=== PATIENT | female | born 1930 | race Caucasian/White ===

== ENCOUNTER 2017-07-17 19:36 | Emergency (ER) | payer MEDICARE ==
[2011-08-27 13:54] VITALS: BMI 20.5
[2017-07-17 20:37] LABS: BASOPHILS 0.3 % (0-2); EOSINOPHILS 0.1 % (0-7); HEMATOCRIT 38.6 % (36.0-48.0); IMMATURE GRANULOCYTES 0.3 % (0-5); LYMPHOCYTES 6.2 % (15-50); MCHC 33.7 g/dL (31.0-37.0); MCV 88.9 fL (80.0-100.0); MEAN PLATELET VOLUME 10.7 fL (7.4-10.4); MONOCYTES 6.6 % (2-11); NEUTROPHILS 86.5 % (40-80); PLATELET COUNT 130 10x3/uL (130-400); RBC 4.34 10x6/uL (4.00-5.40); RDW 12.8 % (11.5-14.5); WBC 7.4 10x3/uL (4.8-10.8)
[2017-07-17 20:49] LABS: INR 3.12 (0.85-1.17); PROTIME 31.3 SECONDS (11.6-15.0)
[2017-07-17 21:01] LABS: ALBUMIN 3.1 g/dL (3.4-5.0); ANION GAP 12.8 mmol/L (8-16); BILIRUBIN - TOTAL 0.82 mg/dL (0.2-1.3); CALCIUM 9.5 mg/dL (8.5-10.1); CARBON DIOXIDE 26.3 mmol/L (21.0-32.0); CREATININE - SERUM 1.2 mg/dL (0.6-1.3); POTASSIUM - SERUM 4.1 mmol/L (3.5-5.1); PROTEIN - SERUM 7.3 g/dL (6.4-8.2)
[2017-07-17 21:02] LABS: MAGNESIUM - SERUM 1.9 mg/dL (1.8-2.4); TROPONIN-I 0.043 ng/mL (0.000-0.060)
[2017-07-17 21:30] LABS: APPEARANCE CLEAR (CLEAR); BILIRUBIN NEGATIVE (NEGATIVE); COLOR YELLOW (YELLOW); GLUCOSE NEGATIVE (NEGATIVE); KETONE NEGATIVE (NEGATIVE); NITRITE NEGATIVE (NEGATIVE); PROTEIN 1+ mg/dL (NEGATIVE); UROBILINOGEN NORMAL (NORMAL); WHITE CELLS - URINE 25-50 /hpf (0-5)
[2017-07-17 21:31] LABS: BACTERIA MODERATE /hpf (NONE SEEN); EPITHELIAL CELLS 0-5 /hpf (0-5); RED CELLS - URINE 0-5 /hpf (0-5)
== END 2017-07-17 22:35 | disposition home or self-care (01) ==
LOC: D.ER 19:36
PROVIDERS: Nurse Practitioner Family
DX: R53.1 Weakness (principal); N39.0 Urinary tract infection, site not specified; R11.2 Nausea with vomiting, unspecified

== ENCOUNTER 2017-07-31 15:26 | Inpatient (IN) | payer MEDICARE ==
[~2017-07-31] VITALS: Ht 157.5 cm; Wt 51.7 kg
[2017-07-31 16:44] LABS: BASOPHILS 0.2 % (0-2); EOSINOPHILS 0 % (0-7); HEMATOCRIT 37.9 % (36.0-48.0); HEMOGLOBIN 12.5 g/dL (12-16); IMMATURE GRANULOCYTES 0.2 % (0-5); LYMPHOCYTES 3.2 % (15-50); MCH 29.3 pg (26.0-34.0); MEAN PLATELET VOLUME 10.4 fL (7.4-10.4); MONOCYTES 7.2 % (2-11); NEUTROPHILS 89.2 % (40-80); RBC 4.26 10x6/uL (4.00-5.40); RDW 12.9 % (11.5-14.5); WBC 6.5 10x3/uL (4.8-10.8)
[2017-07-31 16:54] LABS: PLATELET COUNT 160 10x3/uL (130-400)
[2017-07-31 17:01] LABS: ALKALINE PHOSPHATASE 77 U/L (46-116); ALT (SGPT) 23 U/L (10-68); BILIRUBIN - TOTAL 0.64 mg/dL (0.2-1.3); CALC OSMOLALITY 268 mosm/kg (275-300); CALCIUM 9.5 mg/dL (8.5-10.1); CARBON DIOXIDE 27.1 mmol/L (21.0-32.0); CHLORIDE - SERUM 100 mmol/L (98-107); CREATININE - SERUM 1.3 mg/dL (0.6-1.3); GLUCOSE 137 mg/dL (74-106); POTASSIUM - SERUM 4.2 mmol/L (3.5-5.1); PROTEIN - SERUM 7.4 g/dL (6.4-8.2); SODIUM 133 mmol/L (136-145); UREA NITROGEN 16 mg/dL (7-18); eGFR NON AFRICAN AMERICAN 41 mL/min (90-120)
[2017-07-31 17:12] LABS: CKMB 0.5 U/L (0.0-3.6); CREATINE KINASE 70 UL (21-215); TROPONIN-I 0.033 ng/mL (0.000-0.060)
[2017-07-31 19:05] LABS: APPEARANCE CLEAR (CLEAR); BILIRUBIN NEGATIVE (NEGATIVE); COLOR YELLOW (YELLOW); GLUCOSE NEGATIVE (NEGATIVE); KETONE NEGATIVE (NEGATIVE); NITRITE NEGATIVE (NEGATIVE); PROTEIN TRACE mg/dL (NEGATIVE); SPECIFIC GRAVITY 1.015 (1.005-1.020); UROBILINOGEN NORMAL (NORMAL)
[2017-07-31 21:30] LABS: TROPONIN-I 0.046 ng/mL (0.000-0.060)
[2017-07-31 21:51] LABS: CKMB 0.5 U/L (0.0-3.6); CREATINE KINASE 80 UL (21-215)
[2017-08-01] MEDS ORDERED: COUMADIN5 MG PO (00:02)
[2017-08-01] MEDS ORDERED: ANTIBIOTIC (00:03)
[2017-08-01] MEDS ORDERED: PRINIVIL20 MG PO (00:03)
[2017-08-01 01:03] VITALS: BP 138/58; BMI 20.9
[2017-08-01 03:17] LABS: CKMB 0.4 U/L (0.0-3.6); CREATINE KINASE 78 UL (21-215); TROPONIN-I 0.031 ng/mL (0.000-0.060)
[2017-08-01 06:04] VITALS: BP 129/66
[2017-08-01 08:08] VITALS: BP 142/41
[2017-08-01 08:51] LABS: CKMB 0.4 U/L (0.0-3.6); CREATINE KINASE 87 UL (21-215); TROPONIN-I 0.032 ng/mL (0.000-0.060)
[2017-08-01 11:37] VITALS: BP 118/58
[2017-08-01 13:29] VITALS: Ht 157.5 cm; Wt 51.7 kg
[2017-08-01 14:44] LABS: INR 2.42 (0.85-1.17); PROTIME 25.3 SECONDS (11.6-15.0)
[2017-08-01 17:00] VITALS: BP 123/64
[2017-08-01 22:44] VITALS: BP 156/67
[2017-08-02 00:59] VITALS: BP 151/64
[2017-08-02 05:27] VITALS: BP 141/68
[2017-08-02 05:37] LABS: BASOPHILS 0.2 % (0-2); EOSINOPHILS 0.7 % (0-7); HEMOGLOBIN 11.3 g/dL (12-16); IMMATURE GRANULOCYTES 0.2 % (0-5); LYMPHOCYTES 19.1 % (15-50); MCH 29.1 pg (26.0-34.0); MCHC 32.3 g/dL (31.0-37.0); MCV 90.2 fL (80.0-100.0); MEAN PLATELET VOLUME 10.6 fL (7.4-10.4); NEUTROPHILS 68.8 % (40-80); RBC 3.88 10x6/uL (4.00-5.40); RDW 13.2 % (11.5-14.5)
[2017-08-02 05:38] LABS: PLATELET COUNT 126 10x3/uL (130-400); WBC 4.6 10x3/uL (4.8-10.8)
[2017-08-02 05:49] LABS: ANION GAP 12.1 mmol/L (8-16); CALCIUM 8.9 mg/dL (8.5-10.1); CARBON DIOXIDE 26.9 mmol/L (21.0-32.0); CREATININE - SERUM 1.4 mg/dL (0.6-1.3)
[2017-08-02 05:51] LABS: INR 1.74 (0.85-1.17); PROTIME 19.8 SECONDS (11.6-15.0)
[2017-08-02 08:52] VITALS: BP 145/68
[2017-08-02] MEDS ORDERED: CIPRO500 MG PO (11:44)
[2017-08-02 12:07] VITALS: BP 139/71
[2017-08-02] MEDS ORDERED: SYNTHROID125 MCG PO (12:35)
[2017-08-02] MEDS ORDERED: TAMIFLU75 MG PO ×2 (13:36→15:03)
== END 2017-08-02 15:01 | disposition home or self-care (01) | DRG 153 ==
LOC: D.ER 15:26 → D.M2 20:03
PROVIDERS: Emergency Medicine; Physician Assistant Medical
DX: J11.1 Influenza due to unidentified influenza virus with other respiratory manifestations (principal); J98.11 Atelectasis; E86.9 Volume depletion, unspecified; I95.1 Orthostatic hypotension; E03.9 Hypothyroidism, unspecified; I11.0 Hypertensive heart disease with heart failure; I50.9 Heart failure, unspecified; Z79.01 Long term (current) use of anticoagulants; I48.2 Chronic atrial fibrillation; Z86.73 Personal history of transient ischemic attack (TIA), and cerebral infarction without residual deficits; Z95.0 Presence of cardiac pacemaker

== ENCOUNTER 2017-08-04 13:21 | Inpatient (IN) | payer MEDICARE ==
[~2017-08-04] VITALS: Ht 157.5 cm; Wt 51.1 kg
[~2017-08-04 13:21] MED LIST: ANTIBIOTIC; CIPRO500 MG PO; COUMADIN5 MG PO; PRINIVIL20 MG PO; SYNTHROID125 MCG PO; TAMIFLU75 MG PO
[2017-08-04 16:39] LABS: BASOPHILS 0.8 % (0-2); EOSINOPHILS 1.1 % (0-7); HEMATOCRIT 38.4 % (36.0-48.0); HEMOGLOBIN 12.8 g/dL (12-16); IMMATURE GRANULOCYTES 0.3 % (0-5); LYMPHOCYTES 36.9 % (15-50); MCH 29.5 pg (26.0-34.0); MCHC 33.3 g/dL (31.0-37.0); MCV 88.5 fL (80.0-100.0); MEAN PLATELET VOLUME 10.9 fL (7.4-10.4); MONOCYTES 11.3 % (2-11); NEUTROPHILS 49.6 % (40-80); PLATELET COUNT 159 10x3/uL (130-400); RBC 4.34 10x6/uL (4.00-5.40); RDW 12.8 % (11.5-14.5); WBC 3.6 10x3/uL (4.8-10.8)
[2017-08-04 16:40] LABS: APPEARANCE CLEAR (CLEAR); BILIRUBIN NEGATIVE (NEGATIVE); COLOR YELLOW (YELLOW); GLUCOSE NEGATIVE (NEGATIVE); KETONE NEGATIVE (NEGATIVE); NITRITE NEGATIVE (NEGATIVE); PROTEIN NEGATIVE (NEGATIVE); UROBILINOGEN NORMAL (NORMAL)
[2017-08-04 16:47] LABS: INR 1.45 (0.85-1.17); PROTIME 17.1 SECONDS (11.6-15.0)
[2017-08-04 17:03] LABS: ALBUMIN 3.2 g/dL (3.4-5.0); ANION GAP 15.3 mmol/L (8-16); BILIRUBIN - TOTAL 0.45 mg/dL (0.2-1.3); CARBON DIOXIDE 27.2 mmol/L (21.0-32.0); CREATININE - SERUM 1.2 mg/dL (0.6-1.3); MAGNESIUM - SERUM 2.6 mg/dL (1.8-2.4); POTASSIUM - SERUM 3.5 mmol/L (3.5-5.1); PROTEIN - SERUM 7.3 g/dL (6.4-8.2)
[2017-08-04 22:14] VITALS: BP 123/60
[2017-08-05 00:54] VITALS: BP 117/65
[2017-08-05 04:28] LABS: BASOPHILS 0.8 % (0-2); EOSINOPHILS 1.9 % (0-7); HEMATOCRIT 37.9 % (36.0-48.0); HEMOGLOBIN 12.4 g/dL (12-16); IMMATURE GRANULOCYTES 0.3 % (0-5); LYMPHOCYTES 34.7 % (15-50); MCH 28.9 pg (26.0-34.0); MCHC 32.7 g/dL (31.0-37.0); MCV 88.3 fL (80.0-100.0); MEAN PLATELET VOLUME 10.7 fL (7.4-10.4); MONOCYTES 14.2 % (2-11); NEUTROPHILS 48.1 % (40-80); PLATELET COUNT 161 10x3/uL (130-400); RBC 4.29 10x6/uL (4.00-5.40); WBC 3.7 10x3/uL (4.8-10.8)
[2017-08-05 04:42] LABS: ANION GAP 10.4 mmol/L (8-16); CALCIUM 8.6 mg/dL (8.5-10.1); CARBON DIOXIDE 33.4 mmol/L (21.0-32.0); CREATININE - SERUM 1.4 mg/dL (0.6-1.3); POTASSIUM - SERUM 3.8 mmol/L (3.5-5.1)
[2017-08-05 04:57] VITALS: BMI 20.7
[2017-08-05 05:01] LABS: MAGNESIUM - SERUM 1.8 mg/dL (1.8-2.4)
[2017-08-05 06:02] VITALS: BP 114/65
[2017-08-05 09:46] VITALS: BP 145/75
[2017-08-05 12:14] VITALS: Ht 157.5 cm; Wt 51.1 kg
[2017-08-05 16:29] VITALS: BP 135/68
[2017-08-05 19:00] VITALS: BP 148/71
[2017-08-06] VITALS: BP 143/100
[2017-08-06 05:04] LABS: BASOPHILS 0.8 % (0-2); EOSINOPHILS 1.8 % (0-7); HEMATOCRIT 36.6 % (36.0-48.0); HEMOGLOBIN 12.1 g/dL (12-16); IMMATURE GRANULOCYTES 0.5 % (0-5); LYMPHOCYTES 34.3 % (15-50); MCH 28.8 pg (26.0-34.0); MCHC 33.1 g/dL (31.0-37.0); MCV 87.1 fL (80.0-100.0); MEAN PLATELET VOLUME 10.8 fL (7.4-10.4); MONOCYTES 10.8 % (2-11); NEUTROPHILS 51.8 % (40-80); PLATELET COUNT 166 10x3/uL (130-400); RDW 12.7 % (11.5-14.5)
[2017-08-06 05:07] LABS: INR 1.63 (0.85-1.17); PROTIME 18.8 SECONDS (11.6-15.0)
[2017-08-06 08:13] LABS: ANION GAP 10.8 mmol/L (8-16); CALCIUM 8.7 mg/dL (8.5-10.1); CARBON DIOXIDE 29.5 mmol/L (21.0-32.0); CREATININE - SERUM 1.2 mg/dL (0.6-1.3); POTASSIUM - SERUM 4.3 mmol/L (3.5-5.1)
[2017-08-06 08:43] VITALS: BP 142/81
[2017-08-06 12:11] VITALS: BP 141/76
[2017-08-06 17:50] VITALS: BP 136/68
[2017-08-06 22:06] VITALS: BP 139/64
[2017-08-07 01:10] VITALS: BP 147/88
[2017-08-07 05:07] VITALS: BP 139/71
[2017-08-07 08:19] VITALS: BP 142/76
[2017-08-07 12:21] VITALS: BP 157/76
[2017-08-07 16:08] VITALS: BP 130/62
[2017-08-07 21:59] VITALS: BP 163/68
[2017-08-08 01:46] VITALS: BP 176/84
[2017-08-08 04:49] LABS: BASOPHILS 0.2 % (0-2); EOSINOPHILS 2.1 % (0-7); HEMATOCRIT 36.8 % (36.0-48.0); HEMOGLOBIN 12.2 g/dL (12-16); IMMATURE GRANULOCYTES 0.5 % (0-5); LYMPHOCYTES 20.4 % (15-50); MCH 29.2 pg (26.0-34.0); MCHC 33.2 g/dL (31.0-37.0); MEAN PLATELET VOLUME 10.5 fL (7.4-10.4); MONOCYTES 14.7 % (2-11); NEUTROPHILS 62.1 % (40-80); PLATELET COUNT 176 10x3/uL (130-400); RBC 4.18 10x6/uL (4.00-5.40)
[2017-08-08 05:11] LABS: WBC 5.8 10x3/uL (4.8-10.8)
[2017-08-08 05:24] VITALS: BP 152/75
[2017-08-08 05:25] LABS: ANION GAP 12.6 mmol/L (8-16); CARBON DIOXIDE 27.5 mmol/L (21.0-32.0); CREATININE - SERUM 1.4 mg/dL (0.6-1.3); MAGNESIUM - SERUM 2.1 mg/dL (1.8-2.4); PHOSPHOROUS 3.9 mg/dL (2.5-4.9); POTASSIUM - SERUM 4.1 mmol/L (3.5-5.1)
[2017-08-08 08:30] VITALS: BP 151/72
[2017-08-08 09:25] LABS: INR 1.8 (0.85-1.17); PROTIME 20.3 SECONDS (11.6-15.0)
[2017-08-08 11:28] VITALS: BP 146/74
[2017-08-08] MEDS ORDERED: LEVAQUIN500 MG PO (14:23)
== END 2017-08-08 17:39 | disposition home or self-care (01) | DRG 177 ==
LOC: D.ER 13:21 → D.M2 21:03 → OBSVTIME 21:03 → D.M2 21:03
PROVIDERS: Family Medicine; Internal Medicine Nephrology; Nurse Practitioner Family
DX: J10.08 Influenza due to other identified influenza virus with other specified pneumonia (principal); I50.31 Acute diastolic (congestive) heart failure; J15.20 Pneumonia due to staphylococcus, unspecified; J98.11 Atelectasis; N17.9 Acute kidney failure, unspecified; J15.6 Pneumonia due to other Gram-negative bacteria; I11.0 Hypertensive heart disease with heart failure; I25.10 Atherosclerotic heart disease of native coronary artery without angina pectoris; I48.2 Chronic atrial fibrillation; Z79.01 Long term (current) use of anticoagulants; E78.5 Hyperlipidemia, unspecified; E03.9 Hypothyroidism, unspecified; Z86.73 Personal history of transient ischemic attack (TIA), and cerebral infarction without residual deficits; Z95.0 Presence of cardiac pacemaker; I95.1 Orthostatic hypotension; J69.0 Pneumonitis due to inhalation of food and vomit

== ENCOUNTER 2017-08-08 16:37 | Inpatient (IN) | payer MEDICARE ==
[~2017-08-08] VITALS: Ht 157.5 cm; Wt 50.0 kg
--- NOTE | ~2017-08-08 | RHP ---
PATIENT: PEGGY CALLEJAS MEDICAL RECORD: [id number] ACCOUNT: [id number] LOCATION:[id number] : [birth year] ADMISSION DATE: 08/08/17 REHABILITATION HISTORY AND PHYSICAL EXAMINATION POST ADMISSION PHYSICIAN EXAMINATION POST-ADMISSION PHYSICAL EXAMINATION AND HISTORY AND PHYSICAL DATE OF ADMISSION: 08/08/2017 ADMITTING DIAGNOSIS: Influenza secondary to type A with pneumonia. HISTORY OF PRESENT ILLNESS: The patient is admitted to inpatient rehab for disuse myopathy. She is an 87-year-old female patient with a history of hypertension, coronary artery disease, CVA back in 2016, and atrial fibrillation, on Coumadin at home and monster dysfunction, status post ICD placement, presented to the ER with complaints of cough and shortness of breath and cough with dark brown sputum production. Admitted for shortness of breath on 08/05. She was seen in the Emergency Room on 08/01 following a fall in which she became weak and lost her balance while walking with a walker to the bathroom. During the ER evaluation, she was tested for the flu and tested positive for flu A. She was discharged home on Tamiflu. States that she had not been feeling well for the past couple of weeks and had been getting progressively weaker. States she has had recent falls with having come to the hospital due to weakness. She is on Coumadin and has a large bruise area to her left side of her face. She had a CT scan of her head during her last acute hospital stay, which after a syncopal episode, with no acute findings. States she was on the floor 4 hours prior to being brought to the hospital. She has progressive weakness and proximal weakness with stated difficulty arising from bed to chair and unable to pull herself up secondary to these recent falls. She lives at home with her son. She is moderately independent with use of a rolling walker for mobility and is independent for ADLs except for her daughter assists her with getting in and out of the bathtub for safety. Currently on telemetry, IV fluids, antibiotic. She is currently set up [id number] assist for ADLs. Comorbidities include flu, hypertension, hyperlipidemia, CVA, falls, chronic anticoagulation, community-acquired pneumonia, syncope, AFib, hypothyroidism, debility, atelectasis. PAST MEDICAL HISTORY: Significant for CVA, TIA, weakness, paresthesias, thyroid problems, hypertension, CHF, pacemaker and defibrillator placement secondary to need for this, atrial fib, and skin cancer. PAST SURGICAL HISTORY: Includes cataracts, appendectomy, thyroid, patient has defib placed. ALLERGIES: IODINE, CODEINE, AND MILK. CURRENT MEDICATIONS: Include Coumadin 2.5 mg daily, Synthroid 125 mcg daily. Levaquin, she is on 500 mg, she needs 3 more doses. Lisinopril 20 mg b.i.d, and polyethylene glycol 17 grams in 8 ounces of water daily. HABITS: No alcohol or tobacco use. FAMILY HISTORY: Noncontributory. HISTORY AND PHYSICAL [id number] CALLEJAS,VERNIECE SOCIAL HISTORY: The patient hopes to return back to home with her son and get back to her prior level of functioning. REVIEW OF SYSTEMS: GENERAL: Does complain of weakness. HEENT: Denies cold, cough, or congestion. CARDIOVASCULAR: Denies any chest pain. LUNGS: Does complain of a little bit shortness of breath when getting around. PHYSICAL EXAMINATION: VITAL SIGNS: Stable. She is afebrile. GENERAL: A thin female, in no acute distress upon exam. HEENT: Normocephalic and atraumatic. Mucosa moist. NECK: Supple. No lymphadenopathy. LUNGS: Clear in the upper isbell. HEART: Irregular rate and rhythm. ABDOMEN: Benign. EXTREMITIES: No clubbing, cyanosis or edema. NEUROLOGIC: She seems intact. LABORATORY DATA: Her white count is 5.6, H&H of 12 and 37, and platelet count was 184. Sodium 141, potassium 4.0, BUN and creatinine of 11 and 1.3, and blood sugar noted to be 101. 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 The patient has potential to make improvement. We will institute the following multidisciplinary therapies including, but not limited to physical, occupational, respiratory, speech, nutritional services, prosthetics and orthotics. Given her complex condition and risk for more complications, rehabilitation services cannot be provided at a low level of care such as a longterm facility. PLAN: 1. Admit to [facility] for intensive inpatient therapy to include the following disciplines: A. Physical therapy to improve gait, all transfer skills and bed mobility to a modified independent level. B. Occupational therapy to improve activities of daily living to a modified independent level. C. Case management to assist with discharge planning and placement options. D. Nutrition to assist with nutritional needs. E. Rehabilitation nursing to assist in monitoring the patient's underlying medical conditions and to assist with any type of bowel or bladder management. 2. The patient's current medication and medical care will be continued. 3. The patient will be placed on standard fall precautions. 4. The patient's estimated length of stay is approximately 7 to 10 days. 5. We will discuss this patient during care team staff meeting this week. TRANSINT:[id number] Voice Confirmation ID: [id number] DOCUMENT ID: [id number] MARIELENA notes whether there has been none or any medical/functional change since admission: - No change since prescreen. HISTORY AND PHYSICAL [id number] PEGGY CALLEJAS attests patient continues to be appropriate for IRF: - Continues to be appropriate. NEY ZAVALA MD at 1020 CC: [id number] DICTATION DATE: 08/09/17 0834 TUBER HELPER: 08/09/17 0957 ADM IN [place] [id number] [place] [id number]
[~2017-08-08 16:37] MED LIST changes: +LEVAQUIN500 MG PO
[2017-08-08 18:07] VITALS: BP 146/74; Ht 157.5 cm; Wt 50.0 kg
[2017-08-08 20:00] VITALS: BP 178/84
[2017-08-09 05:58] LABS: BASOPHILS 0.2 % (0-2); EOSINOPHILS 2.3 % (0-7); HEMATOCRIT 37.1 % (36.0-48.0); HEMOGLOBIN 12.2 g/dL (12-16); IMMATURE GRANULOCYTES 0.9 % (0-5); LYMPHOCYTES 17.7 % (15-50); MCHC 32.9 g/dL (31.0-37.0); MCV 88.1 fL (80.0-100.0); MEAN PLATELET VOLUME 10.3 fL (7.4-10.4); MONOCYTES 13.8 % (2-11); NEUTROPHILS 65.1 % (40-80); PLATELET COUNT 184 10x3/uL (130-400); RBC 4.21 10x6/uL (4.00-5.40); RDW 13.4 % (11.5-14.5); WBC 5.6 10x3/uL (4.8-10.8)
[2017-08-09 06:39] LABS: CALCIUM 8.9 mg/dL (8.5-10.1); CREATININE - SERUM 1.3 mg/dL (0.6-1.3)
[2017-08-09 08:02] VITALS: BP 152/73
[2017-08-09 19:00] VITALS: BP 151/64
[2017-08-10 07:18] LABS: INR 1.93 (0.85-1.17); PROTIME 21.5 SECONDS (11.6-15.0)
[2017-08-10 08:51] VITALS: BP 184/77
[2017-08-10 20:00] VITALS: BP 179/90
[2017-08-11 08:08] VITALS: BP 143/77
[2017-08-11 21:32] VITALS: BP 137/70
[2017-08-12 06:45] LABS: BASOPHILS 0.4 % (0-2); EOSINOPHILS 2.7 % (0-7); HEMATOCRIT 39.9 % (36.0-48.0); HEMOGLOBIN 13.2 g/dL (12-16); IMMATURE GRANULOCYTES 0.6 % (0-5); LYMPHOCYTES 19.7 % (15-50); MCH 29.1 pg (26.0-34.0); MCHC 33.1 g/dL (31.0-37.0); MCV 87.9 fL (80.0-100.0); MEAN PLATELET VOLUME 10.1 fL (7.4-10.4); MONOCYTES 12.7 % (2-11); NEUTROPHILS 63.9 % (40-80); PLATELET COUNT 202 10x3/uL (130-400); RBC 4.54 10x6/uL (4.00-5.40); RDW 13.8 % (11.5-14.5); WBC 4.9 10x3/uL (4.8-10.8)
[2017-08-12 06:53] LABS: ANION GAP 13.1 mmol/L (8-16); CALCIUM 9.4 mg/dL (8.5-10.1); CARBON DIOXIDE 26.7 mmol/L (21.0-32.0); CREATININE - SERUM 1.3 mg/dL (0.6-1.3); POTASSIUM - SERUM 3.8 mmol/L (3.5-5.1)
[2017-08-12 07:45] VITALS: BP 153/75
[2017-08-12 21:50] VITALS: BP 144/72
[2017-08-13 06:56] LABS: INR 2.06 (0.85-1.17); PROTIME 22.6 SECONDS (11.6-15.0)
[2017-08-13 08:12] VITALS: BP 159/73
[2017-08-14 01:17] VITALS: BP 132/59
[2017-08-14 07:20] LABS: BASOPHILS 0.4 % (0-2); EOSINOPHILS 2.5 % (0-7); HEMATOCRIT 36.7 % (36.0-48.0); IMMATURE GRANULOCYTES 0.2 % (0-5); LYMPHOCYTES 16.2 % (15-50); MCH 28.9 pg (26.0-34.0); MCHC 32.7 g/dL (31.0-37.0); MCV 88.4 fL (80.0-100.0); MEAN PLATELET VOLUME 10.3 fL (7.4-10.4); MONOCYTES 11.7 % (2-11); PLATELET COUNT 198 10x3/uL (130-400); RBC 4.15 10x6/uL (4.00-5.40); RDW 13.9 % (11.5-14.5); WBC 5.1 10x3/uL (4.8-10.8)
[2017-08-14 07:46] LABS: ANION GAP 10.6 mmol/L (8-16); CALCIUM 9.5 mg/dL (8.5-10.1); CARBON DIOXIDE 29.3 mmol/L (21.0-32.0); CREATININE - SERUM 1.1 mg/dL (0.6-1.3); POTASSIUM - SERUM 3.9 mmol/L (3.5-5.1)
[2017-08-14 09:17] VITALS: BP 150/69
[2017-08-14 21:25] VITALS: BP 162/73
[2017-08-15 07:57] VITALS: BP 147/78
== END 2017-08-15 13:52 | disposition home health service (06) | DRG 91 ==
LOC: D.REHAB 16:37
PROVIDERS: Emergency Medicine
DX: G72.89 Other specified myopathies (principal); J11.00 Influenza due to unidentified influenza virus with unspecified type of pneumonia; J98.11 Atelectasis; N17.9 Acute kidney failure, unspecified; I10 Essential (primary) hypertension; E78.5 Hyperlipidemia, unspecified; Z79.01 Long term (current) use of anticoagulants; R55 Syncope and collapse; I48.91 Unspecified atrial fibrillation; E03.9 Hypothyroidism, unspecified; R53.81 Other malaise; Z91.81 History of falling

== ENCOUNTER 2018-04-02 17:58 | Inpatient (IN) | payer MEDICARE ==
[~2018-04-02] VITALS: Ht 157.5 cm; Wt 49.9 kg
[2018-04-02] MEDS ORDERED: BAYER CHEWABLE81 MG PO (18:02)
[2018-04-02] MEDS ORDERED: SYNTHROID75 MCG PO (18:03)
[2018-04-02 18:30] VITALS: BP 203/95
[2018-04-02 18:49] VITALS: BP 184/97
[2018-04-02 19:01] VITALS: BP 149/78
[2018-04-02 19:11] LABS: BASOPHILS 0.9 % (0-2); EOSINOPHILS 2.4 % (0-7); HEMATOCRIT 41.8 % (36.0-48.0); HEMOGLOBIN 14.4 g/dL (12-16); IMMATURE GRANULOCYTES 0.2 % (0-5); LYMPHOCYTES 19.4 % (15-50); MCH 29.9 pg (26.0-34.0); MCHC 34.4 g/dL (31.0-37.0); MCV 86.9 fL (80.0-100.0); MEAN PLATELET VOLUME 10.6 fL (7.4-10.4); MONOCYTES 12.2 % (2-11); NEUTROPHILS 64.9 % (40-80); PLATELET COUNT 171 10x3/uL (130-400); RBC 4.81 10x6/uL (4.00-5.40); RDW 13.9 % (11.5-14.5); WBC 4.6 10x3/uL (4.8-10.8)
[2018-04-02 19:16] LABS: INR 2.2 (0.85-1.17); PROTIME 23.8 SECONDS (11.6-15.0)
[2018-04-02 19:18] LABS: D-DIMER-QUANTITATIVE 2.32 ug/mLFEU (0.20-0.54)
[2018-04-02 19:21] LABS: APPEARANCE CLOUDY (CLEAR); BILIRUBIN NEGATIVE (NEGATIVE); COLOR STRAW (YELLOW); GLUCOSE NEGATIVE (NEGATIVE); KETONE NEGATIVE (NEGATIVE); NITRITE NEGATIVE (NEGATIVE); PROTEIN NEGATIVE (NEGATIVE); UROBILINOGEN NORMAL (NORMAL)
[2018-04-02 19:23] LABS: BACTERIA FEW /hpf (NONE SEEN); RED CELLS - URINE 0-5 /hpf (0-5); WHITE CELLS - URINE 0-5 /hpf (0-5)
[2018-04-02 19:24] LABS: ALBUMIN 3.6 g/dL (3.4-5.0); ALKALINE PHOSPHATASE 90 U/L (46-116); ALT (SGPT) 29 U/L (10-68); BILIRUBIN - TOTAL 0.41 mg/dL (0.2-1.3); CALC OSMOLALITY 281 mosm/kg (275-300); CALCIUM 9.4 mg/dL (8.5-10.1); CHLORIDE - SERUM 101 mmol/L (98-107); CREATININE - SERUM 1.6 mg/dL (0.6-1.3); GLUCOSE 131 mg/dL (74-106); POTASSIUM - SERUM 3.8 mmol/L (3.5-5.1); PROTEIN - SERUM 8.6 g/dL (6.4-8.2); SODIUM 139 mmol/L (136-145); UREA NITROGEN 19 mg/dL (7-18); eGFR NON AFRICAN AMERICAN 32 mL/min (90-120)
[2018-04-02 19:39] LABS: CKMB 0.8 U/L (0.0-3.6); CREATINE KINASE 56 UL (21-215); MAGNESIUM - SERUM 1.9 mg/dL (1.8-2.4); THYROID STIMULATING HORMONE 13.98 uIU/mL (0.36-3.74); TROPONIN-I < 0.017 ng/mL (0.000-0.060)
[2018-04-02 21:36] VITALS: BP 153/73
[2018-04-03 02:20] VITALS: BP 146/77; BMI 20.1
[2018-04-03 04:09] VITALS: BP 142/74
[2018-04-03 13:56] VITALS: Ht 157.5 cm; Wt 49.9 kg
[2018-04-03 16:25] VITALS: BP 162/70
[2018-04-03 20:40] VITALS: BP 186/82
[2018-04-04 05:20] LABS: BASOPHILS 0.1 % (0-2); EOSINOPHILS 0.6 % (0-7); HEMATOCRIT 41.9 % (36.0-48.0); HEMOGLOBIN 14.4 g/dL (12-16); IMMATURE GRANULOCYTES 0.2 % (0-5); LYMPHOCYTES 6.8 % (15-50); MCH 29.8 pg (26.0-34.0); MCHC 34.4 g/dL (31.0-37.0); MCV 86.7 fL (80.0-100.0); MEAN PLATELET VOLUME 10.6 fL (7.4-10.4); MONOCYTES 5.5 % (2-11); NEUTROPHILS 86.8 % (40-80); PLATELET COUNT 178 10x3/uL (130-400); RBC 4.83 10x6/uL (4.00-5.40); RDW 14.2 % (11.5-14.5)
[2018-04-04 05:31] LABS: WBC 8.2 10x3/uL (4.8-10.8)
[2018-04-04 05:45] LABS: ANION GAP 14.7 mmol/L (8-16); CALCIUM 9.3 mg/dL (8.5-10.1); CARBON DIOXIDE 26.3 mmol/L (21.0-32.0); CREATININE - SERUM 1.5 mg/dL (0.6-1.3)
[2018-04-04 05:51] VITALS: BP 183/90
[2018-04-04 08:18] VITALS: BP 181/96
[2018-04-04 13:10] VITALS: BP 134/84
[2018-04-04 16:40] VITALS: BP 174/101
[2018-04-04 20:55] VITALS: BP 164/90
[2018-04-05 04:40] VITALS: BP 141/76
[2018-04-05 05:58] LABS: BASOPHILS 0.5 % (0-2); EOSINOPHILS 3.8 % (0-7); HEMATOCRIT 38.9 % (36.0-48.0); HEMOGLOBIN 13.1 g/dL (12-16); IMMATURE GRANULOCYTES 0.3 % (0-5); LYMPHOCYTES 7.7 % (15-50); MCH 29.2 pg (26.0-34.0); MCHC 33.7 g/dL (31.0-37.0); MCV 86.8 fL (80.0-100.0); MEAN PLATELET VOLUME 11.2 fL (7.4-10.4); MONOCYTES 9.9 % (2-11); NEUTROPHILS 77.8 % (40-80); PLATELET COUNT 168 10x3/uL (130-400); RBC 4.48 10x6/uL (4.00-5.40); RDW 14.2 % (11.5-14.5)
[2018-04-05 06:00] LABS: ANION GAP 12.6 mmol/L (8-16); CARBON DIOXIDE 25.3 mmol/L (21.0-32.0); CREATININE - SERUM 1.6 mg/dL (0.6-1.3); POTASSIUM - SERUM 3.9 mmol/L (3.5-5.1)
[2018-04-05 06:05] LABS: WBC 5.9 10x3/uL (4.8-10.8)
[2018-04-05 06:08] LABS: INR 2.52 (0.85-1.17); PROTIME 26.5 SECONDS (11.6-15.0)
[2018-04-05 11:01] VITALS: BP 138/71
== END 2018-04-05 13:16 | disposition home or self-care (01) | DRG 689 ==
LOC: D.ER 17:58 → D.EDHOLD 20:40 → OBSVTIME 20:40 → D.M2 21:19 → D.MS 22:01
PROVIDERS: Family Medicine; Internal Medicine Nephrology
DX: N39.0 Urinary tract infection, site not specified (principal); G93.40 Encephalopathy, unspecified; N17.9 Acute kidney failure, unspecified; E03.9 Hypothyroidism, unspecified; F03.90 Unspecified dementia, unspecified severity, without behavioral disturbance, psychotic disturbance, mood disturbance, and anxiety; K21.9 Gastro-esophageal reflux disease without esophagitis; I48.91 Unspecified atrial fibrillation; Z79.01 Long term (current) use of anticoagulants; Z95.810 Presence of automatic (implantable) cardiac defibrillator; I11.0 Hypertensive heart disease with heart failure; I50.9 Heart failure, unspecified; B96.5 Pseudomonas (aeruginosa) (mallei) (pseudomallei) as the cause of diseases classified elsewhere

== ENCOUNTER → 2018-06-04 12:14 | Outpatient (CLI) | payer MEDICARE ==
[2018-04-03 13:56] VITALS: BMI 20.1
[~2018-06-04 12:14] MED LIST changes: +BAYER CHEWABLE81 MG PO; +SYNTHROID75 MCG PO
== END | disposition home or self-care (01) ==
LOC: D.RAD 12:14
DX: R13.12 Dysphagia, oropharyngeal phase (principal)

== ENCOUNTER → 2018-08-28 12:49 | Outpatient (CLI) | payer MEDICARE ==
[2018-04-03 13:56] VITALS: BMI 20.1
== END | disposition home or self-care (01) ==
LOC: D.RAD 12:49
DX: R13.14 Dysphagia, pharyngoesophageal phase (principal)

== ENCOUNTER → 2018-10-28 14:40 | Outpatient (CLI) | payer MEDICARE ==
[2018-04-03 13:56] VITALS: BMI 20.1
== END | disposition home or self-care (01) ==
LOC: D.CT 14:40
PROVIDERS: ATTEND Family Medicine
DX: R47.81 Slurred speech (principal); G81.94 Hemiplegia, unspecified affecting left nondominant side